=== PATIENT | female | born 1960 | race Caucasian/White ===

== ENCOUNTER 2017-11-17 11:21 | Emergency (ER) | payer OTHER ==
[2017-11-17 11:30] VITALS: BP 137/85
--- NOTE | 2017-11-17 12:33 | ED Physician Documentation ---
History of Present Illness - Stated complaint Stated Complaint: GLF/LEFT HAND INJ - Chief complaint Chief Complaint: Ext Problem - Additonal information Additional information: hx from pt tripped over baby gate FOOSH L hand no toher injury pain swelling and deformity no blood thinners occured last night Review of Systems Skin: denies: Laceration (s) Musculoskeletal: reports: Extremity pain. denies: Neck pain Neurologic: denies: Headache, Head injury PD PAST MEDICAL HISTORY - Past Medical History Past Medical History: No - Past Surgical History Past Surgical History: No - Present Medications Home Medications: Ambulatory Orders Medication Instructions Recorded Confirmed Meloxicam 15 mg 11/17/17 Paroxetine Mesylate [Pexeva] 40 mg 11/17/17 - Allergies Allergies/Adverse Reactions: Allergies Allergy/AdvReac Type Severity Reaction Status Date / Time No Known Drug Allergies Allergy Verified 11/17/17 11:30 - Social History Does the pt smoke?: No Smoking Status: Never smoker Does the pt drink ETOH?: No Does the pt have substance abuse?: No - Immunizations Immunizations are current?: Yes - POLST Patient has POLST: No PD ED PE NORMAL - Vitals Vital signs reviewed: Yes - HEENT HEENT: Atraumatic - Extremities Extremities: Other (swelling deformity and TTP to L wrist, proximal FA elbow and hand NT, MSV intact) Results - Vitals Vitals: Vital Signs - 24 hr 11/17/17 11:24 Temperature 36.0 C L Heart Rate 79 Respiratory 18 Rate Blood Pressure 137/85 H O2 Saturation 99 Oxygen O2 Source Room air - Rads (name of study) wrist Radiology: See rad report (transverse fx distal radius with minimal angulation) Procedures - Splint (location) LUE Splint applied by: Nurse Type of splint: Fiberglass, Long arm, Sugar tong Other: Patient tolerated well, No complications, Neurovascular intact, Sling provided PD MEDICAL DECISION MAKING - ED course ED course: pt declined pain meds - 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 Vital Signs: Vital Signs - 24 hr 11/17/17 11:24 Temperature 36.0 C L Heart Rate 79 Respiratory 18 Rate Blood Pressure 137/85 H O2 Saturation 99 Oxygen O2 Source Room air Departure - Departure Disposition: 01 Home, Self Care Clinical Impression: Wrist fracture, left Qualifiers: Encounter type: initial encounter Fracture type: closed Qualified Code(s): S62.102A - Fracture of unspecified carpal bone, left wrist, initial encounter for closed fracture Condition: Good Instructions: ED Fx Wrist General, ED Splint Care Fiberglass Follow-Up: [facility] [Provider Group] (call to schedule follow up and be changed out of the splint into a cast) Comments: Ice and elevation to decrease the swelling Motrin and tylenol for the pain Follow up with orthopedics Return if worse
--- NOTE | 2017-11-17 13:13 | XRAY Report ---
Procedure Date: 11/17/2017 Accession Number: [id number] / [id number] Procedure: XR - Wrist 4 View LT CPT Code: FULL RESULT: EXAM: LEFT WRIST RADIOGRAPHY EXAM DATE: 11/17/2017 12:22 PM. CLINICAL HISTORY: FOOSH. COMPARISON: None. TECHNIQUE: 3 views. FINDINGS: Bones: There is a transverse fracture in the distal metaphysis of the radius with minimal dorsal angulation, 9 degrees, and unremarkable AP alignment. No discrete scaphoid fractures seen. Joints: No significant degenerative process. No subluxations. Soft Tissues: There is diffuse soft tissue swelling. IMPRESSION: Transverse fracture in the distal metaphysis of the radius with minimal dorsal angulation and unremarkable AP alignment. RADIA
== END 2017-11-17 13:21 | disposition home or self-care (01) ==
LOC: ED 11:21
DX: S52.592A Other fractures of lower end of left radius, initial encounter for closed fracture (principal); W01.0XXA Fall on same level from slipping, tripping and stumbling without subsequent striking against object, initial encounter
CPT/HCPCS: 29105; 99282

== ENCOUNTER 2017-11-28 06:06 | Day surgery (SDC) | payer OTHER ==
[2017-11-28] MEDS ORDERED: ceFAZolin 1 GM VIAL ONE (06:32)
[2017-11-28] MEDS ORDERED: SCOPOLAMINE PATCH TOP ONE (06:32)
[2017-11-28] MEDS ORDERED: LACTATED RINGERS 1,000 ML IV ONE ×2 (06:56→08:53)
[2017-11-28] MEDS ORDERED: KETOROLAC 30 MG/ML VIAL IVP ONE (07:30)
[2017-11-28] MEDS ORDERED: ONDANSETRON 4 MG/2 ML VIAL IVP ONE (07:30)
[2017-11-28] MEDS ORDERED: DEXAMETHASONE 4 MG/ML VIAL IVP ONE (07:30)
[2017-11-28] MEDS ORDERED: LIDOCAINE-MPF 2% 5 ML VIAL IM ONE (07:30)
[2017-11-28] MEDS ORDERED: PROPOFOL 200 MG/20 ML VIAL IVP ONE (07:30)
[2017-11-28] MEDS ORDERED: fentaNYL 100 MCG/2 ML VIAL IVP ONE (07:30)
[2017-11-28] MEDS ORDERED: MIDAZOLAM 2 MG/2 ML VIAL IVP ONE (07:30)
[2017-11-28] MEDS ORDERED: BUPIVACAINE 0.25%-EPI 1:200000 PF 30 ML VIAL ONE (07:35)
[2017-11-28] MEDS ORDERED: BUPIVACAINE 0.25%-EPI 1:200000 PF 10 ML VIAL SUBQ ONE (08:15)
[2017-11-28] MEDS: HYDROmorphone 1 MG/ML CARPUJECT ONE ×2 (08:42→08:52)
[2017-11-28] MEDS ORDERED: ACETAMINOPHEN 1,000 MG/100 ML 100 ML IV ONE (08:53)
[2017-11-28] MEDS ORDERED: ACETAMINOPHEN 325 MG TABLET PO ONE ×2 (09:40→10:00)
[2017-11-28] MEDS ORDERED: traMADol 50 MG TABLET PO ONE ×2 (09:41→10:00)
[2017-11-28] MEDS ORDERED: LACTATED RINGERS 1,000 ML IV SCH (10:00)
[2017-11-28] MEDS ORDERED: HYDROmorphone 0.5 MG/0.5 ML SYRINGE ONE (10:01)
[2017-11-28 10:55] VITALS: BP 117/73
--- NOTE | 2017-11-28 11:50 | OPERATIVE REPORT ---
DATE OF SERVICE: 11/28/2017 Physician: Tamy Bolden MD PREOPERATIVE DIAGNOSIS: Left distal radius dorsal angulated Colles fracture. POSTOPERATIVE DIAGNOSIS: Left distal radius dorsal angulated Colles fracture. PROCEDURE PERFORMED: Closed reduction and percutaneous pinning of left distal radial fracture. OPERATING SURGEON: Tamy Bolden MD ANESTHESIA: General by Jourdan Ibarra. INDICATIONS FOR SURGERY: Patient is a 57-year-old female status post a fall on an outstretched arm, causing a dorsal angulated fracture, which is proven to be unstable and progressing in dorsal angulation. Recommendation was that the patient undergo closed reduction and percutaneous pinning. DESCRIPTION OF OPERATIVE PROCEDURE: The patient was taken to the operating room and was given a general anesthetic. A tourniquet was placed on the upper arm and the forearm and hand were sterilely prepped and draped in standard fashion. The patient's fracture was manipulated and C-arm images confirmed that satisfactory reduction could be accomplished, and after this was undertaken, 0.062 K-wires were used transradial styloid to gain fixation of the fracture and the bone quality was good and the pin fixation was stable. The wrist was viewed from a lateral x-ray with range of motion of the wrist and the reduction stayed in place and stable. The pins were bent and cut outside the skin with Jurgan balls placed and the patient was placed in a below elbow fiberglass cast, which was well padded for swelling. She was taken to recovery room in stable condition. ESTIMATED BLOOD LOSS: Minimal. COMPLICATIONS: None. COUNTS: Sponge and needle counts correct. TD: 11/28/2017 10:38
== END 2017-11-28 06:07 | disposition home or self-care (01) ==
LOC: SDS 06:06
PROVIDERS: ATTEND Orthopaedic Surgery
PROC: 0PSJ34Z Reposition Left Radius with Internal Fixation Device, Percutaneous Approach (ICD-10-PCS; principal; 2017-11-28 07:30)
DX: S52.532A Colles' fracture of left radius, initial encounter for closed fracture (principal); Z87.891 Personal history of nicotine dependence
CPT/HCPCS: 25606; A9270; C1713; J0131; J1170; J3490; J7120